=== PATIENT | female | born 1955 | race Caucasian/White ===

== ENCOUNTER 2019-07-09 15:21 | Emergency (ER) | payer BC ==
[2019-07-09] MEDS: Lidocaine 1% with EPINEPHrine 1:100,000 20 ML MDV INJECT ONE (15:50)
[2019-07-09] MEDS: Bupivacaine 0.25% 30 ML SDV INJECT ONE (15:50)
--- NOTE | 2019-07-09 16:52 | EDM.PDOC ---
ED HPI GENERAL MEDICAL PROBLEM - General Stated Complaint: LACERATION Time Seen by Provider: 07/09/19 15:40 - History of Present Illness INITIAL COMMENTS - FREE TEXT/NARRATIVE: Brandy was stepping into her fishing boat and must have flexed with her foot somewhat dorsiflexed and some weight when she scraped her ferguson from an inferior to superior direction on a plastic edge. There was no exposure to [place] water. She immediately noticed the avulsion, applied pressure with a clean and dry towel, and proceeded directly here to the emergency room. She is up-to-date on her tetanus. She has had no issues in terms of complete range of motion of her ankle and knee. - Related Data Allergies Allergy/AdvReac Type Severity Reaction Status Date / Time No Known Allergies Allergy Verified 09/06/13 21:01 Home Meds: Home Meds Cetirizine [ZyrTEC] 5 mg PO DAILY 09/06/13 [History] Lisinopril 5 mg PO DAILY 09/06/13 [History] Budesonide/Formoterol Fumarate [Symbicort 160-4.5 Mcg Inhaler] 2 inh INH BID 02/15 [History] ED ROS GENERAL - Review of Systems Review Of Systems: See Below Reason Not Obtained: No other injury ED EXAM, GENERAL - Physical Exam Exam: See Below Exam Limited By: No Limitations General Appearance: Alert, WD/WN, No Apparent Distress Eye Exam: Bilateral Eye: EOMI, Normal Inspection Ears: Hearing Grossly Normal Head: Atraumatic, Normocephalic Neck: Normal Inspection, Full Range of Motion Respiratory/Chest: No Respiratory Distress Extremities: Other (Inspection of DNI this inferior left lower extremity reveals a 6 x 8 cm avulsion flap of skin apex inferior of her ferguson. After mixing plain lidocaine with epinephrine and bupivacaine for local anesthetic, her wound was copiously irrigated and carefully inspected with optimal lighting and instruments to exclude any contamination this was essentially bloodless at that time and it was felt that misael were really provided the past degree of traction on the wound edges has the tip of the apex certainly was so thin I do not think it could have held any sutures to be honest. Closure was obtained with many many misael and reinforced with Steri-Strips and dressing otherwise applied she tolerated all this quite well there was no underlying bony deformity or tenderness present) Course - Vital Signs Text/Narrative:: She will have her steel sampler check it on Monday, and otherwise return immediately if any signs of infection including purulence, increased pain, fever , or increased redness, as discussed. She verbalizes understanding about this and measures to help enhance cosmesis. Encouraged her to come back Monday to consider removal of at least half of her misael at that time. Departure - Departure Time of Disposition: 16:00 Disposition: Home, Self-Care 01 Clinical Impression: Ferguson injury Qualifiers: Encounter type: initial encounter Laterality: left Qualified Code(s): S89.92XA - Unspecified injury of left lower leg, initial encounter - Discharge Information Instructions: Laceration Care, Adult Referrals: PCP,None [Primary Care Provider] - Care Plan Goals: Return to emergency room to have misael removed. Watch for signs of infection and return with any as discussed. Leave dressing on for 24 hours and can shower then. Rewrap as directed by physician.
== END 2019-07-09 16:40 | disposition home or self-care (01) ==
LOC: LB.ED 15:21
DX: S81.802A Unspecified open wound, left lower leg, initial encounter (principal); Z79.899 Other long term (current) drug therapy; W26.8XXA Contact with other sharp object(s), not elsewhere classified, initial encounter
CPT/HCPCS: 12004; 99282; 99283; J3490

== ENCOUNTER 2021-08-26 12:39 | Emergency (ER) | payer BC | END 2021-08-26 13:41 | disposition home or self-care (01) | LOC: LB.ED 13:19 | DX: S81.832A Puncture wound without foreign body, left lower leg, initial encounter (principal); Z79.899 Other long term (current) drug therapy; W26.8XXA Contact with other sharp object(s), not elsewhere classified, initial encounter | CPT/HCPCS: 99283 ==